=== PATIENT | female | born 1990 | race Caucasian/White ===

== ENCOUNTER 2024-06-22 06:15 | Observation (INO) | payer BC, OTHER ==
[2024-06-22] MEDS ORDERED: fentaNYL 250 MCG/5 ML SDV ONE (06:24)
[2024-06-22] MEDS ORDERED: Propofol 200 MG/20 ML SDV ONE (06:24)
[2024-06-22] MEDS ORDERED: Midazolam 1 MG/ML 2 ML SDV ONE (06:24)
[2024-06-22] MEDS ORDERED: Sugammadex Sodium 200 MG/2 ML VIAL IV ONE ×2 (06:25→10:36)
[2024-06-22] MEDS ORDERED: Dexamethasone 4 MG/ML 5 ML MDV ONE (06:25)
[2024-06-22] MEDS ORDERED: Ketorolac 30 MG/ML SDV ONE (06:25)
[2024-06-22] MEDS ORDERED: Rocuronium 50 MG/5 ML Vial ONE ×2 (06:25→08:53)
[2024-06-22] MEDS ORDERED: Lidocaine 2% 5 ML SDV ONE (06:25)
[2024-06-22 06:34] LABS: BASOPHILS PERCENT AUTO 0.5 % (0.0-1.0); EOSINOPHILS ABSOLUTE AUTO 0.1 K/mm3 (0.0-0.4); EOSINOPHILS PERCENT AUTO 1.9 % (0.0-6.0); HEMATOCRIT 39.8 % (37.0-47.0); HEMOGLOBIN 13.2 gm/dl (12.0-16.0); IMMATURE GRAN ABSOLUTE AUTO 0.02 K/mm3 (0.00-0.05); IMMATURE GRAN PERCENT AUTO 0.3 % (0.0-0.4); LYMPHOCYTES ABSOLUTE AUTO 3.4 K/mm3 (1.0-4.8); LYMPHOCYTES PERCENT AUTO 45.5 % (24.0-44.0); MEAN CORPUSCULAR HEMOGLOBIN 29.7 pg (28.0-32.0); MEAN CORPUSCULAR HGB CONC 33.2 g/dl (32.0-36.0); MEAN CORPUSCULAR VOLUME 89.4 fl (83.0-99.0); MEAN PLATELET VOLUME 9.5 fl (9.4-12.3); MONOCYTES ABSOLUTE AUTO 0.6 K/mm3 (0.0-0.8); MONOCYTES PERCENT AUTO 8.4 % (0.0-8.0); NEUTROPHILS ABSOLUTE AUTO 3.2 K/mm3 (1.8-7.7); NEUTROPHILS PERCENT AUTO 43.4 % (41.0-71.0); PLATELET COUNT,PLT 302 K/mm3 (150-400); RED BLOOD CELL COUNT 4.45 M/mm3 (4.10-5.30); WHITE BLOOD CELL COUNT,WBC 7.39 K/mm3 (3.9-11.3)
[2024-06-22] MEDS ORDERED: ceFAZolin 2 GM Vial ONE ×2 (06:34→10:20)
[2024-06-22] MEDS: Celecoxib 100 MG Cap PO SCH (06:44)
[2024-06-22] MEDS: Acetaminophen 325 MG Tab PO ONE (06:45)
[2024-06-22] MEDS: Gabapentin 300 MG Cap PO SCH (06:45)
[2024-06-22] MEDS ORDERED: Lactated Ringers 1,000 ML IV SCH ×2 (06:45→07:15)
[2024-06-22] MEDS: Phenazopyridine 95 MG Tab PO SCH (06:45)
[2024-06-22 06:49] LABS: CALCIUM 8.9 mg/dL (8.5-10.1); CREATININE 0.8 mg/dL (0.55-1.02); EST CRCL DRUG DOSING (CG) 104.53 mL/min
[2024-06-22] MEDS ORDERED: Ondansetron 4 MG/2 ML SDV IVPUSH PRN ×2 (07:05→11:12)
[2024-06-22] MEDS ORDERED: fentaNYL 100 MCG/2 ML SDV IVPUSH PRN (07:05)
[2024-06-22] MEDS ORDERED: Sodium Chloride 0.9% 10 ML Syringe FLUSH PRN (07:05)
[2024-06-22] MEDS ORDERED: Esmolol 100 MG/10 ML SDV ONE (07:45)
[2024-06-22] MEDS ORDERED: Lactated Ringers 1,000 ML ONE ×2 (08:03→09:09)
[2024-06-22] MEDS: Lidocaine 1% with EPINEPHrine 1:100,000 20 ML MDV ONE (08:13)
[2024-06-22] MEDS ORDERED: Lidocaine 1% with EPINEPHrine 1:100,000 20 ML MDV ONE (08:29)
[2024-06-22] MEDS ORDERED: ePHEDrine 50 MG/ML SDV ONE (09:23)
[2024-06-22] MEDS ORDERED: Ondansetron 4 MG/2 ML SDV ONE (09:23)
[2024-06-22] MEDS ORDERED: HYDROmorphone 0.5 MG/0.5 ML Syringe ONE (09:31)
[2024-06-22] MEDS ORDERED: Metoprolol Tartrate 5 MG/5 ML SDV ONE (09:34)
[2024-06-22] MEDS: Methylene Blue 100 MG/10 ML SDV ONE (09:45)
[2024-06-22] MEDS: HYDROmorphone 0.5 MG/0.5 ML Syringe IVPUSH PRN (11:31)
[2024-06-22] MEDS: Ibuprofen 800 MG Tab PO SCH ×2 (13:08→18:45)
[2024-06-22] MEDS: Acetaminophen 325 MG Tab PO SCH ×2 (13:08→18:45)
[2024-06-22] MEDS: oxyCODONE 5 MG Tab PO PRN (13:56)
[2024-06-22] MEDS: Sodium Chloride 0.9% 10 ML Syringe FLUSH SCH (14:25)
[2024-06-22] MEDS ORDERED: Naloxone 0.4 MG/ML SDV IVPUSH PRN (17:47)
[2024-06-22] MEDS: HYDROmorphone 1 MG/ML Syringe IVPUSH PRN (20:58)
[2024-06-22] MEDS: Cyclobenzaprine 10 MG Tab PO PRN (23:48)
[2024-06-23 07:27] LABS: BASOPHILS PERCENT AUTO 0.2 % (0.0-1.0); EOSINOPHILS PERCENT AUTO 0.1 % (0.0-6.0); HEMATOCRIT 34.4 % (37.0-47.0); IMMATURE GRAN ABSOLUTE AUTO 0.05 K/mm3 (0.00-0.05); IMMATURE GRAN PERCENT AUTO 0.4 % (0.0-0.4); LYMPHOCYTES ABSOLUTE AUTO 2.5 K/mm3 (1.0-4.8); LYMPHOCYTES PERCENT AUTO 19.4 % (24.0-44.0); MEAN CORPUSCULAR HEMOGLOBIN 29.9 pg (28.0-32.0); MEAN CORPUSCULAR HGB CONC 33.1 g/dl (32.0-36.0); MEAN CORPUSCULAR VOLUME 90.3 fl (83.0-99.0); MEAN PLATELET VOLUME 9.5 fl (9.4-12.3); MONOCYTES ABSOLUTE AUTO 1.1 K/mm3 (0.0-0.8); MONOCYTES PERCENT AUTO 8.3 % (0.0-8.0); NEUTROPHILS ABSOLUTE AUTO 9.2 K/mm3 (1.8-7.7); NEUTROPHILS PERCENT AUTO 71.6 % (41.0-71.0); PLATELET COUNT,PLT 290 K/mm3 (150-400); RED BLOOD CELL COUNT 3.81 M/mm3 (4.10-5.30); WHITE BLOOD CELL COUNT,WBC 12.86 K/mm3 (3.9-11.3)
[2024-06-23 07:28] LABS: HEMOGLOBIN 11.4 gm/dl (12.0-16.0)
[2024-06-23 07:44] LABS: ANION GAP 13.1 (5-15); BUN/CREATININE RATIO 12.2 (14-18); CALCIUM 8.3 mg/dL (8.5-10.1); CREATININE 0.9 mg/dL (0.55-1.02); EST CRCL DRUG DOSING (CG) 63.86 mL/min; POTASSIUM,K 4.1 mEq/L (3.5-5.1)
== END 2024-06-23 09:01 | disposition home or self-care (01) ==
LOC: JD.SDS 06:15 → JD.OB 11:12
PROVIDERS: ADMIT Obstetrics & Gynecology; ATTEND Obstetrics & Gynecology
DX: N80.03 Adenomyosis of the uterus (principal); N72 Inflammatory disease of cervix uteri; N80.9 Endometriosis, unspecified; Z88.1 Allergy status to other antibiotic agents; Z88.5 Allergy status to narcotic agent; Z91.030 Bee allergy status
CPT/HCPCS: 36415; 51040; 58552; 80048; 81025; 85025; 86850; 86900; 86901; 94762; A9270; J0690; J1100; J1171; J1596; J2250; J2405; J2704; J3010; J3490; J7120; Q9968; 00944; J1885